=== PATIENT | female | born 1940 | race Caucasian/White ===

== ENCOUNTER 2024-08-06 18:49 | Inpatient (IN) | payer MEDICARE, BC ==
[~2024-08-06] VITALS: Ht 162.6 cm; Wt 63.5 kg
[2024-08-06] MEDS ORDERED: REMEDY ESSENTIAL ZINC PASTE 113 GM TOP PRN (20:00)
[2024-08-06] MEDS ORDERED: METO-356 PO (21:50)
[2024-08-06] MEDS ORDERED: CALC-963 PO (21:50)
[2024-08-06] MEDS ORDERED: APIX5TAB PO (21:50)
[2024-08-06] MEDS ORDERED: LACT1CAP72 PO (21:50)
[2024-08-06] MEDS ORDERED: DICY20TA11 PO (21:50)
[2024-08-06] MEDS ORDERED: POTA99TA16 PO (21:50)
[2024-08-06] MEDS ORDERED: ALPR0.5T8 PO (21:50)
[2024-08-06] MEDS ORDERED: AMLO-212 PO (21:50)
[2024-08-06] MEDS ORDERED: BIOT5000 SL (21:50)
[2024-08-06 23:05] VITALS: BP 100/59; TEMP 99.5; O2SAT 94
[2024-08-07 06:10] VITALS: BP 109/67; TEMP 97.9; O2SAT 92
[2024-08-07] MEDS: OXYCODONE/APAP 5-325 MG TABLET PO PRN (11:02)
[2024-08-07] MEDS: METOPROLOL SUCCINATE XL 25 MG TAB.SR.24H PO SCH (11:31)
[2024-08-07] MEDS: AMLODIPINE 5 MG TABLET PO SCH (11:32)
[2024-08-07] MEDS: APIXABAN 5 MG TABLET PO SCH (11:35)
[2024-08-07 15:29] VITALS: BP_SYST 103; BP_SYST 105; BP_DIAS 57; BP_DIAS 58; TEMP 97.6; O2SAT 94
[2024-08-07] MEDS: ENSURE ENLIVE (VAN) 240 ML LIQUID PO SCH (16:57)
[2024-08-07 20:10] VITALS: BP 109/56; TEMP 98.7; O2SAT 93
[2024-08-08 06:12] VITALS: BP 112/44; TEMP 98.4; O2SAT 95
[2024-08-08] MEDS: CALCIUM CITRA-VITAMIN D 315 MG-250 UNITS TABLET PO SCH (08:50)
[2024-08-08] MEDS ORDERED: POTASSIUM GLUCONATE 99 MG PO SCH (09:00)
[2024-08-08] MEDS ORDERED: LACTOBACILLUS RHAMNOSUS GG PO SCH (09:00)
[2024-08-08] MEDS: MAGNESIUM HYDROXIDE 30 ML LIQUID UDC PO PRN (10:42)
[2024-08-08 16:11] VITALS: BP 104/56; TEMP 98.1; O2SAT 96
[2024-08-08 20:10] VITALS: BP 107/61; TEMP 99.1; O2SAT 93
[2024-08-08] MEDS: DOCUSATE SODIUM 100 MG CAPSULE PO SCH ×2 (20:16→20:18)
[2024-08-09 06:00] VITALS: BP 112/62; TEMP 98.2; O2SAT 91
[2024-08-09] MEDS: OXYCODONE HCL 5 MG TABLET PO SCH ×2 (09:04→13:00)
[2024-08-09 16:10] VITALS: BP 114/62; TEMP 97.6; O2SAT 96
[2024-08-09 20:00] VITALS: BP 117/72; TEMP 97.5; O2SAT 94
[2024-08-10 05:00] VITALS: BP 115/71; TEMP 98; O2SAT 94
[2024-08-10] MEDS ORDERED: OXYCODONE HCL 5 MG TABLET PO SCH (12:36)
[2024-08-10 15:30] VITALS: BP 111/65; TEMP 97.7; O2SAT 94
[2024-08-10 20:00] VITALS: BP 116/69; TEMP 98.1; O2SAT 95
[2024-08-11 06:00] VITALS: BP 112/69; TEMP 98.3; O2SAT 95
[2024-08-11] MEDS: OXYCODONE HCL 5 MG TABLET PO SCH (07:52)
[2024-08-11 16:00] VITALS: BP 107/62; TEMP 97.7; O2SAT 96
[2024-08-11 18:00] LABS: *BILIRUBIN,URIN NEGATIVE (NEGATIVE); *BLOOD, URINE 2+ (NEGATIVE); *CLARITY,URINE CLEAR (CLEAR); *COLOR,URINE YELLOW (YELLOW); *KETONES,URINE NEGATIVE (NEGATIVE); *PROTEIN,URINE NEGATIVE (NEGATIVE); *UROBILINOGEN,URINE 0.2 E.U./dl (NORMAL); LEUKOCYTE ESTERASE ,URINE NEGATIVE (NEGATIVE); NITRITE, URINE NEGATIVE (NEGATIVE); UGLUCOSE NEGATIVE (NEGATIVE)
[2024-08-11 18:02] LABS: WBC,URINE 0-3 /HPF (0-3)
[2024-08-11 20:00] VITALS: BP 119/67; TEMP 97.3; O2SAT 96
[2024-08-12 06:00] VITALS: BP 120/63; TEMP 98.2; O2SAT 95
[2024-08-12 08:03] LABS: BASOPHILS # (AUTO) 0.1 K/UL (0.0-0.2); BASOPHILS % (AUTO) 0.6 % (0.0-2.0); EOSINOPHILS # (AUTO) 0.1 K/uL (0.0-0.7); EOSINOPHILS % (AUTO) 0.7 % (0.0-7.0); HEMATOCRIT 23.3 % (31.2-41.9); HEMOGLOBIN 8.1 g/dL (10.9-14.3); LYMPHOCYTES # (AUTO) 1.9 K/uL (0.8-4.8); LYMPHOCYTES % (AUTO) 16.3 % (20.5-51.5); MEAN CORPUSCULAR HEMOGLOBIN 33.9 uug (24.7-32.8); MEAN CORPUSCULAR HGB CONC 35 g/dL (32.3-35.6); MEAN CORPUSCULAR VOLUME 97.7 fL (75.5-95.3); MONOCYTES % (AUTO) 8.8 % (0.0-11.0); NEUTROPHILS # (AUTO) 8.5 K/uL (1.8-8.9); NEUTROPHILS % (AUTO) 73.6 % (38.5-71.5); PLATELET COUNT (AUTO) 542 K/uL (179-408); RED CELL DISTRIBUTION WIDTH 13.3 % (12.3-17.7); WHITE BLOOD COUNT (AUTO) 11.5 K/uL (3.8-11.8)
[2024-08-12 08:10] LABS: DIFFERENTIAL COMMENT 1; RED BLOOD CELL COUNT(AUTO) 2.39 MIL/uL (3.63-4.92)
[2024-08-12 08:11] LABS: CALCIUM 9.3 mg/dL (8.5-10.1); CARBON DIOXIDE 29 mmol/L (21-32); CHLORIDE 101 mmol/L (98-107); CREATININE 0.9 mg/dL (0.6-1.3); GLUCOSE 114 mg/dL (74-106); SODIUM SERUM 137 mmol/L (136-145); UREA NITROGEN, BLOOD 15 mg/dL (7-18)
[2024-08-12] MEDS: BISACODYL 5 MG TABLET.DR PO PRN (08:48)
[2024-08-12 16:12] VITALS: BP 98/59; TEMP 97.8; O2SAT 98
[2024-08-12] MEDS: DOCUSATE SODIUM 100 MG CAPSULE PO SCH (21:00)
[2024-08-12] MEDS: OXYCODONE/APAP 5-325 MG TABLET PO PRN (22:34)
[2024-08-12 23:13] VITALS: BP 102/67; TEMP 98.1; O2SAT 97
[2024-08-13 07:10] VITALS: BP 114/56; TEMP 98.4; O2SAT 91
[2024-08-13 07:35] LABS: BASOPHILS # (AUTO) 0.1 K/UL (0.0-0.2); BASOPHILS % (AUTO) 0.8 % (0.0-2.0); EOSINOPHILS # (AUTO) 0.2 K/uL (0.0-0.7); HEMATOCRIT 22.4 % (31.2-41.9); HEMOGLOBIN 7.9 g/dL (10.9-14.3); LYMPHOCYTES # (AUTO) 3.3 K/uL (0.8-4.8); LYMPHOCYTES % (AUTO) 36.5 % (20.5-51.5); MEAN CORPUSCULAR HEMOGLOBIN 34.4 uug (24.7-32.8); MEAN CORPUSCULAR HGB CONC 35 g/dL (32.3-35.6); MEAN CORPUSCULAR VOLUME 97.6 fL (75.5-95.3); MONOCYTES # (AUTO) 0.7 K/uL (0.1-1.30); MONOCYTES % (AUTO) 8.3 % (0.0-11.0); NEUTROPHILS # (AUTO) 4.7 K/uL (1.8-8.9); NEUTROPHILS % (AUTO) 52.4 % (38.5-71.5); PLATELET COUNT (AUTO) 599 K/uL (179-408); RED CELL DISTRIBUTION WIDTH 13.6 % (12.3-17.7)
[2024-08-13 07:41] LABS: DIFFERENTIAL COMMENT 1
[2024-08-13 08:10] LABS: IRON, SERUM 41 ug/dL (50-175)
[2024-08-13 08:36] LABS: CALCIUM 9.2 mg/dL (8.5-10.1); CARBON DIOXIDE 30 mmol/L (21-32); CHLORIDE 102 mmol/L (98-107); CREATININE 0.9 mg/dL (0.6-1.3); FERRITIN 477 ng/mL (8-252); GLUCOSE 100 mg/dL (74-106); MAGNESIUM 2.2 mg/dL (1.8-2.4); POTASSIUM 3.6 mmol/L (3.5-5.1); SODIUM SERUM 139 mmol/L (136-145); UREA NITROGEN, BLOOD 16 mg/dL (7-18)
[2024-08-13] MEDS: OXYCODONE HCL 5 MG TABLET PO SCH ×2 (08:42→17:23)
[2024-08-13 09:07] LABS: THYROID STIMULATING HORMONE 2.939 mIU/mL (0.358-3.740)
[2024-08-13] MEDS: ALPRAZOLAM 0.5 MG TABLET PO PRN (14:57)
[2024-08-13 16:05] VITALS: BP 119/60; TEMP 98; O2SAT 97
[2024-08-13 21:03] VITALS: BP 100/57; TEMP 97.7; O2SAT 96
[2024-08-14 06:54] VITALS: BP 116/67; TEMP 98.2; O2SAT 94
[2024-08-14] MEDS: ALPRAZOLAM 0.5 MG TABLET PO PRN (11:08)
[2024-08-14 15:23] VITALS: BP 107/67; TEMP 97.6; O2SAT 93
[2024-08-14 21:07] VITALS: BP 116/59; TEMP 97.6; O2SAT 93
[2024-08-15 05:57] VITALS: BP 124/66; TEMP 98.2; O2SAT 95
[2024-08-15] MEDS: HYDROMORPHONE HCL 2 MG TABLET PO SCH (08:43)
[2024-08-15] MEDS: HYDROMORPHONE HCL 2 MG TABLET PO PRN ×2 (11:58→20:19)
[2024-08-15 15:27] VITALS: BP 100/60; TEMP 98.2; O2SAT 94
[2024-08-15 19:31] VITALS: BP 121/69; TEMP 97.8; O2SAT 94
[2024-08-15] MEDS: SYSTANE ULTRA EACHEYE SCH (20:19)
[2024-08-16 06:40] VITALS: BP 131/69; TEMP 98; O2SAT 96
[2024-08-16 20:00] VITALS: BP 114/45; TEMP 98.4; O2SAT 97
[2024-08-17 06:00] VITALS: BP 121/64; TEMP 98; O2SAT 96
[2024-08-17 06:59] VITALS: BP 121/64; TEMP 98.4; O2SAT 96
[2024-08-17] MEDS: DICYCLOMINE HCL 20 MG TABLET PO PRN (09:19)
[2024-08-17 16:16] VITALS: BP 100/71; TEMP 97.8; O2SAT 98
[2024-08-17 20:00] VITALS: BP 113/66; TEMP 97.6; O2SAT 95
[2024-08-18 06:00] VITALS: BP 117/66; TEMP 98.2; O2SAT 94
[2024-08-18] MEDS: HYDROMORPHONE HCL 2 MG TABLET PO SCH (12:33)
[2024-08-18 16:09] VITALS: BP 108/66; TEMP 98.4; O2SAT 95
[2024-08-18 21:00] VITALS: BP 117/54; TEMP 98; O2SAT 96
[2024-08-19 06:44] VITALS: BP 158/47; TEMP 98.4; O2SAT 98
[2024-08-19 07:35] LABS: BASOPHILS # (AUTO) 0.1 K/UL (0.0-0.2); BASOPHILS % (AUTO) 1.3 % (0.0-2.0); EOSINOPHILS # (AUTO) 0.2 K/uL (0.0-0.7); HEMATOCRIT 24.6 % (31.2-41.9); HEMOGLOBIN 8.1 g/dL (10.9-14.3); LYMPHOCYTES # (AUTO) 2.1 K/uL (0.8-4.8); LYMPHOCYTES % (AUTO) 28.4 % (20.5-51.5); MEAN CORPUSCULAR HEMOGLOBIN 33.2 uug (24.7-32.8); MEAN CORPUSCULAR HGB CONC 33 g/dL (32.3-35.6); MEAN CORPUSCULAR VOLUME 100.2 fL (75.5-95.3); MONOCYTES # (AUTO) 0.6 K/uL (0.1-1.30); MONOCYTES % (AUTO) 8.2 % (0.0-11.0); NEUTROPHILS # (AUTO) 4.5 K/uL (1.8-8.9); NEUTROPHILS % (AUTO) 60.1 % (38.5-71.5); PLATELET COUNT (AUTO) 771 K/uL (179-408); RED CELL DISTRIBUTION WIDTH 15.2 % (12.3-17.7); WHITE BLOOD COUNT (AUTO) 7.5 K/uL (3.8-11.8)
[2024-08-19 07:44] LABS: CALCIUM 9.4 mg/dL (8.5-10.1); CARBON DIOXIDE 28 mmol/L (21-32); CHLORIDE 103 mmol/L (98-107); CREATININE 0.9 mg/dL (0.6-1.3); GLUCOSE 100 mg/dL (74-106); POTASSIUM 3.7 mmol/L (3.5-5.1); SODIUM SERUM 139 mmol/L (136-145); UREA NITROGEN, BLOOD 14 mg/dL (7-18)
[2024-08-19 07:51] LABS: DIFFERENTIAL COMMENT 1; RED BLOOD CELL COUNT(AUTO) 2.46 MIL/uL (3.63-4.92)
[2024-08-19 15:30] VITALS: BP 113/62; TEMP 98; O2SAT 98
[2024-08-19 20:31] VITALS: BP 126/60; TEMP 98.3; O2SAT 85
[2024-08-20 06:51] VITALS: BP 142/71; TEMP 98.5; O2SAT 95
[2024-08-20 16:19] VITALS: BP 105/52; TEMP 97.9; O2SAT 96
[2024-08-20 20:05] VITALS: BP 113/64; TEMP 98.7; O2SAT 96
[2024-08-21 05:51] LABS: *BILIRUBIN,URIN NEGATIVE (NEGATIVE); *CLARITY,URINE CLEAR (CLEAR); *COLOR,URINE YELLOW (YELLOW); *KETONES,URINE NEGATIVE (NEGATIVE); *PROTEIN,URINE NEGATIVE (NEGATIVE); *UROBILINOGEN,URINE 0.2 E.U./dl (NORMAL); LEUKOCYTE ESTERASE ,URINE NEGATIVE (NEGATIVE); NITRITE, URINE NEGATIVE (NEGATIVE); UGLUCOSE NEGATIVE (NEGATIVE)
[2024-08-21 06:12] LABS: *BLOOD, URINE TRACE INTACT (NEGATIVE)
[2024-08-21 06:13] VITALS: BP 135/70; TEMP 97.5; O2SAT 93
[2024-08-21 06:19] LABS: BACTERIA,URINE NONE SEEN /HPF (NONE SEEN); RBC,URINE 0-3 /HPF (0-3); SQUAMOUS EPITHELIAL CELL,UR FEW /HPF (NONE SEEN)
[2024-08-21 06:50] VITALS: BP 120/59; TEMP 98.1; O2SAT 97
[2024-08-21] MEDS: CEphaleXIN 500 MG CAPSULE PO SCH (18:00)
[2024-08-21 18:49] LABS: BASOPHILS # (AUTO) 0.1 K/UL (0.0-0.2); BASOPHILS % (AUTO) 1.2 % (0.0-2.0); EOSINOPHILS # (AUTO) 0.1 K/uL (0.0-0.7); EOSINOPHILS % (AUTO) 1.1 % (0.0-7.0); HEMATOCRIT 26.8 % (31.2-41.9); HEMOGLOBIN 8.9 g/dL (10.9-14.3); LYMPHOCYTES % (AUTO) 28.4 % (20.5-51.5); MEAN CORPUSCULAR HGB CONC 33 g/dL (32.3-35.6); MEAN CORPUSCULAR VOLUME 99.3 fL (75.5-95.3); MONOCYTES # (AUTO) 0.8 K/uL (0.1-1.30); MONOCYTES % (AUTO) 7.2 % (0.0-11.0); NEUTROPHILS # (AUTO) 6.7 K/uL (1.8-8.9); NEUTROPHILS % (AUTO) 62.1 % (38.5-71.5); PLATELET COUNT (AUTO) 791 K/uL (179-408); RED CELL DISTRIBUTION WIDTH 15.2 % (12.3-17.7); WHITE BLOOD COUNT (AUTO) 10.7 K/uL (3.8-11.8)
[2024-08-21 18:51] LABS: DIFFERENTIAL COMMENT 1
[2024-08-21 20:00] VITALS: BP 120/64; TEMP 98.3; O2SAT 93
[2024-08-22 05:45] VITALS: BP 112/56; TEMP 98.3; O2SAT 93
[2024-08-22 10:00] VITALS: BP 121/60; TEMP 98; O2SAT 95
== END 2024-08-22 14:23 | disposition home health service (06) | DRG 560 ==
PROVIDERS: ADMIT Physical Medicine & Rehabilitation Pain Medicine; ATTEND Physical Medicine & Rehabilitation Pain Medicine
DX: S72.142D Displaced intertrochanteric fracture of left femur, subsequent encounter for closed fracture with routine healing (principal); I48.20 Chronic atrial fibrillation, unspecified; I10 Essential (primary) hypertension; K59.00 Constipation, unspecified; Z79.01 Long term (current) use of anticoagulants; W19.XXXD Unspecified fall, subsequent encounter; D64.9 Anemia, unspecified; Z88.2 Allergy status to sulfonamides
CPT/HCPCS: 36415; 73501; 82746; 83550; 83735; 84100; 84443; 85025; 97535-GO-CO; A4663